=== PATIENT | female | born 1950 | race Caucasian/White ===

== ENCOUNTER 2018-10-23 11:42 | Observation (INO) | payer OTHER, MEDICARE ==
--- NOTE | 2018-10-23 12:10 | PDOC ---
History of Present Illness - General Chief Complaint: Urinary Problem Stated Complaint: PAIN ON URINATION Time Seen by Provider: 10/23/18 11:47 History Source: Patient Exam Limitations: No Limitations - History of Present Illness Initial Comments: 10/23/18 12:51 68y F hx of parkinsons, anxiety, hypothyroidism, recent dx of UTI (was on bactrim and then a pcn based medication) as an outpatient, but presents due to persistent weakness. Pt had dysuria recently but dnies any currently. she notes occasional suprapubic discomfort after taking her medcations, but states that has been going on for a year, with no changes recently. pt denies any cp, sob, palpitations, back pain, current abd pain, current dysuria, fever/chills, diarrhea, melena, bpr, diaphoresis, sob. the pt does endorse approx 1 week of increased coughing with production of whitishs putum w/o associated f/c, cp, [place], Past History - Past Medical History Allergies/Adverse Reactions: Allergies Allergy/AdvReac Type Severity Reaction Status Date / Time prednisone Allergy Verified 10/23/18 11:53 Home Medications: Ambulatory Orders Carbidopa/Levodopa 25/250 [Sinemet 25/250 -] 1 each PO QID 10/23/18 Clonazepam 0.25 mg PO PRN PRN 10/23/18 Levothyroxine Sodium [Synthroid] 88 mcg PO DAILY 10/23/18 Mirtazapine 22.5 mg PO HS 10/23/18 Omeprazole 40 mg PO ASDIR 10/23/18 Teriparatide [Forteo] 0 ml SQ DAILY 10/23/18 COPD: No Thyroid Disease: Yes Other medical history: PARKINSONS, OSTEOPOROSIS - Suicide/Smoking/Psychosocial Hx Smoking History: Never smoked Hx Alcohol Use: No Drug/Substance Use Hx: No Review of Systems - Review of Systems Able to Perform ROS?: Yes Comments:: 10/23/18 12:54 Constitutional - +general malaise no reported Fever, Chills, HEENT: no reported vision changes, sore throat Respiratory: + cough, no reported sob, hemoptysis Cardiac: no reported chest pain, palpitations, light headedness, leg swelling Abd/GI: no reported abd pain, nausea, vomiting, blood per rectum, melena, diarrhea : no reported dysuria, frequency, discharge Musculskelatal - no reported back pain, joint swelling skin - no reported bruising, erythema, rash neurological: no reported headache, numbness, focal weakness, tingling, ataxia, hematologic: no reported easy bruising, easy bleeding *Physical Exam - Vital Signs Last Vital Signs Temp Pulse Resp BP Pulse Ox 97.2 F L 84 17 105/63 100 10/23/18 11:43 10/23/18 11:43 10/23/18 11:43 10/23/18 11:43 10/23/18 11:43 - Physical Exam Comments: 10/23/18 12:54 GENERAL: The patient is awake, alert, and fully oriented, Nontoxic - in no acute distress. HEAD: Normocephalic, atraumatic. EYES: extraocular movements intact, sclera anicteric, conjunctiva clear. ENT: Normal voice, Moist mucous membranes. NECK: Normal range of motion, supple LUNGS: rales at R base, no acute respiratory distress HEART: Regular rate and rhythm, normal S1 and S2 without murmur, rub or gallop. ABDOMEN: Soft, nontender, normoactive bowel sounds. No guarding, no rebound. No CVA tenderness EXTREMITIES: Normal range of motion, no edema. No clubbing or cyanosis. No cords, erythema, or tenderness. NEUROLOGICAL: No facial assymetry, moving all 4 extremities spontnaeously and symmetrically PSYCH: Normal mood, normal affect. SKIN: Warm, Dry, normal turgor, Heart Score/ECG Review - ECG Impressions Comment:: 10/23/18 12:55 Twelve-lead EKG was performed and reviewed by me. There is normal sinus rhythm with a normal rate. Rate of 78 Nonspecific T wave inversion in lead 3 ED Treatment Course - LABORATORY CBC & Chemistry Diagram: 10/23/18 12:21 10/23/18 12:21 - RADIOLOGY Radiology Studies Ordered: Category Date Time Status CHEST X-RAY PORTABLE* [RAD] Stat Radiology 10/23/18 11:54 Ordered Medical Decision Making - Medical Decision Making 10/23/18 12:56 71-year-old history of Parkinson's, hypothyroid, anxiety presenting with generalized malaise and weakness associated with 1 week of cough, recent diagnosis of UTI and had been on 2 courses of antibiotics On exam the patient is no acute distress, exam noted for rales at the R base She is afebrile however her oxygen saturation is borderline at 94% on RA Differential for the symptom patient's symptoms includes possible UTI consider possible pneumonia We'll obtain a UA, chest x-ray, blood work, cultures, EKG, trop, will erassess 10/23/18 13:51 labs reviewed UA unremarkble but possibly secondary to recent abx use cxr noted for some fluid in the R fissure will start pt on ctx will admit for further manageent case dw REHABILITATION PHYSICIAN Edmund accepted for admission to med surg under dr. reyes's service Case discussed in detail with admitting physician including history, physical exam and ancillary studies. Admitting physician has assumed care for the patient, will follow all pending diagnostics and will complete the evaluation and treatment. *DC/Admit/Observation/Transfer Diagnosis at time of Disposition: Parkinson disease Pneumonia Qualifiers: Pneumonia type: due to unspecified organism Laterality: right Lung location: lower lobe of lung Qualified Code(s): J18.1 - Lobar pneumonia, unspecified organism Urinary tract infection Qualifiers: Urinary tract infection type: site unspecified Hematuria presence: without hematuria Qualified Code(s): N39.0 - Urinary tract infection, site not specified - Discharge Dispostion Condition at time of disposition: Stable Decision to Admit order: Yes - Referrals - Patient Instructions - Post Discharge Activity
[2018-10-23 12:56] LABS: ALBUMIN 3.6 g/dl (3.4-5.0); ALK PHOS 112 U/L (45-117); ANION GAP 9 MMOL/L (8-16); BILIRUBIN,TOTAL 0.6 mg/dl (0.2-1); BLOOD UREA NITROGEN 16 mg/dl (7-18); CALCIUM 8.2 mg/dl (8.5-10); CHLORIDE 100 mmol/L (98-107); CO2 26 mmol/L (21-32); CREATININE 0.6 mg/dl (0.55-1.3); GLUCOSE,RANDOM 80 mg/dl (74-106); SGOT/AST 21 U/L (15-37); SGPT/ALT 7 U/L (13-61); SODIUM 135 mmol/L (136-145); TOT PROT 6.2 g/dl (6.4-8.2)
[2018-10-23 13:37] LABS: BASO % 0.2 % (0-2.0); EOS % 1.4 % (0-4.5); HEMATOCRIT 38.3 % (32.4-45.2); HEMOGLOBIN 12.7 GM/dl (10.7-15.3); LYMPH % 21.6 % (8-40); MCH 28.3 pg (25.7-33.7); MCHC 33.2 g/dl (32.0-36.0); MEAN CELL VOLUME 85.4 fl (80-96); MEAN PLT VOLUME 7.7 fl (7.5-11.1); MONO % 14.3 % (3.8-10.2); NEUT % 62.5 % (42.8-82.8); PLATELET COUNT 287 K/MM3 (134-434); RBC 4.48 M/mm3 (3.60-5.2); RDW 13.6 % (11.6-15.6); WHITE BLOOD COUNT 3.5 K/mm3 (4.0-10.8)
[2018-10-23] MEDS ORDERED: CEFTRIAXONE 1 GM in DEXTROSE 5%-WATER - 50 ML IVPB ONE (13:49)
[2018-10-23] MEDS ORDERED: cefTRIAXone SODIUM 1 GM VIAL ONE (13:58)
[2018-10-23] MEDS ORDERED: CLONAZEPAM 0.25 MG PO PRN (13:58)
--- NOTE | 2018-10-23 13:58 | HP ---
CHIEF COMPLAINT: "I'm here for a UTI. And I've been coughing." PCP: Dr. Salvador Menezes, [facility] [phone] Neuro: Dr. Jean Armando, [place] Neuro: Dr. Pardeep Booth, [facility] [place] HISTORY OF PRESENT ILLNESS: 68 year-old female with a PMH significant for a progressive neuromuscular disorder diagnosed two years ago and GERD. She has been seen by several neuroloigsts without consensus on a diagnosis. She has been treated empirically with carbidopa/levodopa. Patient was brought to the ED today by her for worsening cough and difficulty swallowing. The cough is persistent and frequently productive of clear sputum. The cough is worse when she lays down and she experiences a choking sensation when she lays flat. Over the past two months patient had two workups for UTIs and has been on two courses of antibiotics. Last course of macrobid finished about a week ago. Patient was seen by a urologist and had an ultrasound which showed a full bladder even though patient had no urge to void. She was catheterized on that occasion, but no further workup was done for urinary retention. Over the past several days patient reports several episodes of sweats and dysuria. In addition, over the past three weeks, reports several episodes of delusions when the patient thinks her mother and father are talking in their apartment. She also has said her children were in the apartment at a time when they were not. ER course was notable for: (1) WBC 3.5k (2) SpO2 91% on room air (3) CT chest: (1) bronchitis; (2) thickening of the esophagus, distended with food-like material up to the upper esophagus just inferior to the thoracic inlet. Recent Travel: [employer] PAST MEDICAL HISTORY: Neuromuscular disorder Pelvic fracture Wrist fracture Severe osteoporosis GERD PAST SURGICAL HISTORY: Knee arthroplasty Social History: Smoking: no Alcohol: no Drugs: no Family History: father 85, normal pressure hydrocephalus; mother 93 CVA; brother alive recurrent DVTs/PE; two children a&w Allergies prednisone Allergy (Verified 10/23/18 11:53) - more of intolerance, exacerbates GERD Home Medications Medication Instructions Recorded Carbidopa/Levodopa 25/250 [Sinemet 1 each PO QID 10/23/18 25/250 -] Clonazepam 0.25 mg PO PRN PRN 10/23/18 Levothyroxine Sodium [Synthroid] 88 mcg PO DAILY 10/23/18 Mirtazapine 22.5 mg PO HS 10/23/18 Omeprazole 40 mg PO ASDIR 10/23/18 Teriparatide [Forteo] 0 ml SQ DAILY 10/23/18 REVIEW OF SYSTEMS CONSTITUTIONAL: +sweats Absent: fever, chills, diaphoresis, generalized weakness, malaise, loss of appetite, weight change HEENT: Absent: rhinorrhea, nasal congestion, throat pain, throat swelling, difficulty swallowing, mouth swelling, ear pain, eye pain, visual changes CARDIOVASCULAR: Absent: chest pain, syncope, palpitations, irregular heart rate, lightheadedness , peripheral edema RESPIRATORY: +cough Absent: cough, shortness of breath, dyspnea with exertion, orthopnea, wheezing, stridor, hemoptysis GASTROINTESTINAL: +difficulty swallowing, cough, copious clear sputum, choking sensation when lying down Absent: abdominal pain, abdominal distension, nausea, vomiting, diarrhea, constipation, melena, hematochezia GENITOURINARY: +dysuria, frequency Absent: dysuria, frequency, urgency, hesitancy, hematuria, flank pain, genital pain MUSCULOSKELETAL: Absent: myalgia, arthralgia, joint swelling, back pain, neck pain SKIN: Absent: rash, itching, pallor HEMATOLOGIC/IMMUNOLOGIC: Absent: easy bleeding, easy bruising, lymphadenopathy, frequent infections ENDOCRINE: Absent: unexplained weight gain, unexplained weight loss, heat intolerance, cold intolerance NEUROLOGIC: +dysarthria, difficulty swallowing, difficulty walking, lower extremity weakness , bladder incontinence, mental status changes Absent: headache, focal weakness or paresthesias, dizziness, unsteady gait, seizure, bowel incontinence PSYCHIATRIC: +anxiety Absent: depression, suicidal or homicidal ideation, hallucinations. PHYSICAL EXAMINATION Vital Signs - 24 hr 10/23/18 11:43 Temperature 97.2 F L Pulse Rate 84 Respiratory 17 Rate Blood Pressure 105/63 O2 Sat by Pulse 100 Oximetry (%) GENERAL: Awake, alert, and fully oriented. LUNGS: Scattered rhonchi, bibasilar crackles; weak cough; bedside peak flow 130 HEART: Regular rate and rhythm, S1 and S2 ABDOMEN: Soft, nontender, not distended, normoactive bowel sounds, no guarding, no rebound tenderness UPPER EXTREMITIES: 2+ pulses, warm, well-perfused. No cyanosis. No clubbing. No peripheral edema. LOWER EXTREMITIES: 2+ pulses, warm, well-perfused. No calf tenderness. Trace bilateral pedal edema. NEUROLOGICAL: Dysarthria, weak cough, SKIN: Warm, dry, normal turgor Laboratory Results - last 24 hr 10/23/18 10/23/18 10/23/18 11:50 12:15 12:21 WBC 3.5 L RBC 4.48 Hgb 12.7 Hct 38.3 MCV 85.4 MCH 28.3 MCHC 33.2 RDW 13.6 Plt Count 287 MPV 7.7 Absolute Neuts (auto) 2.2 Neutrophils % 62.5 Lymphocytes % 21.6 Monocytes % 14.3 H Eosinophils % 1.4 Basophils % 0.2 Sodium Potassium Chloride Carbon Dioxide Anion Gap BUN Creatinine Creat Clearance w eGFR Random Glucose Calcium Total Bilirubin AST ALT Alkaline Phosphatase Creatine Kinase Troponin I < 0.03 Total Protein Albumin Urine Color Yellow Urine Appearance Clear Urine pH 6.0 Urine Protein Negative Urine Glucose (UA) Negative Urine Ketones Negative Urine Blood Negative Urine Nitrite Negative Urine Bilirubin Negative Urine Urobilinogen 0.2 Ur Leukocyte Esterase Trace 10/23/18 12:21 WBC RBC Hgb Hct MCV MCH MCHC RDW Plt Count MPV Absolute Neuts (auto) Neutrophils % Lymphocytes % Monocytes % Eosinophils % Basophils % Sodium 135 L Potassium 4.0 Chloride 100 Carbon Dioxide 26 Anion Gap 9 BUN 16 Creatinine 0.6 Creat Clearance w eGFR 98.83 Random Glucose 80 Calcium 8.2 L Total Bilirubin 0.6 AST 21 ALT 7 L Alkaline Phosphatase 112 Creatine Kinase 63 Troponin I Cancelled Total Protein 6.2 L Albumin 3.6 Urine Color Urine Appearance Urine pH Urine Protein Urine Glucose (UA) Urine Ketones Urine Blood Urine Nitrite Urine Bilirubin Urine Urobilinogen Ur Leukocyte Esterase ASSESSMENT/PLAN 68 year-old female with a PMH significant for a progressive neuromuscular disorder x 2 years and GERD. Recently treated for recurrent UTIs. Placed on observation for suspected bronchitis and UTI. Found on admission to have distended esophagus from food-like material. Neuromuscular disorder --by history provided by patient and symptoms have waxed and waned over past 2 years, but progressively worse in past two months --has been treated with carbidopa/levodopa since 12/2017 with improvement in symptoms for a number of months --seen and evaluated by neurology Dr. Rosenberg --since NPO tonight, start Neupro 4mg TD patch q24h, and mirtazapine ODT 22.5mg qhs Distended esophagus --CT chest: thickening of the esophagus, distended with food-like material up to the upper esophagus just inferior to the thoracic inlet --seen and evaluated by GI Dr. Redd; OG tube dropped, <10cc's clear sputum output --strict NPO --HOB 60-->90 degrees; suction at bedside --upright abdominal film in am --concern for aspiration, will start empiric ceftriaxone and clindamycin Bronchitis --WBC 3.5k, no fever --mildly hypoxic on admission, improves with position change and deep breathing --peak flow 130; daily monitoring --incentive spirometer --duonebs q4h Dysuria Frequency --UA clear but recent abx use, last round finished one week ago --symptomatic --empiric ceftriaxone GERD --Protonix IVP BID FEN Fluids: D51/2NS@100mL/hr Electrolytes: replete as indicated Nutrition: strict NPO DVT prophylaxis: subq heparin Physical therapy - pre post evaluation during PT Dispo: continues to require inpatient care. Full code. Visit type - Emergency Visit Emergency Visit: Yes ED Registration Date: 10/23/18 Care time: The patient presented to the Emergency Department on the above date and was hospitalized for further evaluation of their emergent condition. - New Patient This patient is new to me today: Yes Date on this admission: 10/23/18 - Critical Care Critical Care patient: Yes Total Critical Care Time (in minutes): 180 Critical Care Statement: The care of this patient involved high complexity decision making to prevent further life threatening deterioration of the patient 's condition and/or to evaluate & treat vital organ system(s) failure or risk of failure.
[2018-10-23] MEDS ORDERED: CARBIDOPA/LEVODOPA 25/250 TABLET (FP) PO SCH ×2 (14:00→18:00)
[2018-10-23] MEDS ORDERED: PATIENT'S OWN MEDICATION (NON-FORMULARY) (Omeprazole [Omeprazole] 40 MG) PO SCH (14:00)
[2018-10-23] MEDS ORDERED: CARBIDOPA/LEVODOPA 25/250 TABLET (FP) PO ONE (14:03)
[2018-10-23 14:13] LABS: EPI CELLS FEW /HPF; URINE RBC 0-3 /hpf (0-4); URINE WBC 0-3 (NEGATIVE)
[2018-10-23] MEDS ORDERED: [UNRECOGNIZED DRUG - OTHER] PO PRN (14:38)
[2018-10-23] MEDS ORDERED: clonazePAM 0.5 MG TABLET PO PRN (14:41)
--- NOTE | 2018-10-23 15:17 | EKG ---
Test Reason : Blood Pressure : / mmHG Vent. Rate : 078 BPM Atrial Rate : 078 BPM P-R Int : 132 ms QRS Dur : 076 ms QT Int : 396 ms P-R-T Axes : 043 -11 -12 degrees QTc Int : 451 ms NORMAL SINUS RHYTHM RIGHT ATRIAL ENLARGEMENT MINIMAL VOLTAGE CRITERIA FOR LVH, MAY BE NORMAL VARIANT NONSPECIFIC ST ABNORMALITY ABNORMAL ECG NO PREVIOUS ECGS AVAILABLE Confirmed by JOELLE MCKEON, DARCIE ([id number]) on 10/23/2018 3:17:06 PM Referred By: DEAN SELBY Confirmed By:DARCIE LAI MD
[2018-10-23 16:08] VITALS: BMI 28.8
--- NOTE | 2018-10-23 16:35 | ECHO ---
Name: KAVON COYNE ANN Exam:Adult Echocardiogram Study Date: 10/23/2018 03:40 PM Age: 68 yrs Reason For Study: HYPOXIA LOWER EXTREMITY EDEMA Height: 60 in Weight: 134 lb BSA: 1.6 m2 MMode/2D Measurements & Calculations IVSd: 0.81 cm Ao root diam: 3.3 cm LVIDd: 3.3 cm LA dimension: 3.1 cm LVIDs: 2.1 cm LVPWd: 0.76 cm LVPWs: 2.7 cm EDV(Teich): 45.7 ml ESV(Teich): 15.0 ml LVOT diam: 2.0 cm Doppler Measurements & Calculations MV E max rohini: 58.5 cm/sec MV A max rohini: 56.4 cm/sec MV dec slope: 281.1 cm/sec2 MV E/A: 1.0 Ao V2 max: 93.6 cm/sec LV V1 max P.0 mmHg Ao max P.5 mmHg LV V1 mean P.9 mmHg Ao V2 mean: 71.7 cm/sec LV V1 max: 112.0 cm/sec Ao mean P.3 mmHg LV V1 mean: 79.9 cm/sec Ao V2 VTI: 21.3 cm LV V1 VTI: 24.8 cm NAVEEN(I,D): 3.7 cm2 NAVEEN(V,D): 3.8 cm2 SV(LVOT): 77.8 ml TR max rohini: 193.7 cm/sec TR max P.0 mmHg Procedure A complete two-dimensional transthoracic echocardiogram was performed (2D, M-mode, Doppler and color flow Doppler). Left Ventricle The left ventricular size, thickness and function are normal. The left ventricular ejection fraction is normal. Ejection Fraction = 60-65%. The left ventricular wall motion is normal. Right Ventricle The right ventricle is normal in size and function. Atria Normal left and right atrial size and function. Mitral Valve There is no mitral regurgitation noted. Tricuspid Valve There is trace tricuspid regurgitation. There was insufficient TR detected to calculate RV systolic p ressure. Aortic Valve The aortic valve is trileaflet. No hemodynamically significant valvular aortic stenosis. Mild aortic regurgitation. Pulmonic Valve There is no pulmonic valvular regurgitation. Great Vessels The aortic root is normal size. Pericardium/Pleura There is no pericardial effusion. Interpretation Summary The left ventricular size, thickness and function are normal The right ventricle is normal in size and function. There is trace tricuspid regurgitation. Mild aortic regurgitation. MD Brian Moore 10/23/2018 04:35 PM
[2018-10-23] MEDS ORDERED: DEXTROSE 5%-0.45% SALINE 1,000 ML IV SCH (17:30)
[2018-10-23] MEDS ORDERED: LORazepam 2 MG/ML SDV VIAL IVPUSH PRN ×3 (17:55→23:12)
--- NOTE | 2018-10-23 19:27 | PN ---
Progress Note (short form) - Note Progress Note: Patient seen and chart/labs reviewed with consult dictated. Patient with reported esophageal motility disorder (had barium study several weeks ago) but has generally been able to eat fairly well. Has also had progressive neurologic issues and was admitted with concerns regarding possible aspiration/risk. CT scan (no contrast) shows thickened esophagus with possible retained material along the kirkpatrick; ?inflammation/ esophagitis. Orogastric tube passed at bedside to 40cm with no resistance and small amount of clear fluid aspirated (patient with less raspy throat after tube removed) Suspect patient has combination of esophageal dysmotility and GERD with esophagitis; no evidence of esophageal obstruction. Rec: NPO except for ice chips Obtain upright CXR in am Will arrange for EGD tomorrow early afternoon to evaluate further IV PPI bid
[2018-10-23] MEDS: CLINDAMYCIN 600MG PREMIX IVPB 600 MG/50 ML BAG IVPB SCH (20:00)
[2018-10-23] MEDS ORDERED: ALBUTEROL SO4 2.5/IPRATROPIUM 0.5 INH SOL 3 ML VIAL.NEB. NEB SCH ×2 (20:00)
--- NOTE | 2018-10-23 20:02 | CONS ---
DATE OF CONSULTATION: 10/23/2018 DATE OF DICTATION: 10/23/2018 HISTORY OF PRESENT ILLNESS: I am asked to evaluate this 68-year-old female with esophageal dysmotility and possible gastroesophageal reflux. The patient is a 68-year-old female with a progressive neurological disorder of unknown etiology. She is being treated for possible Parkinson's disease and at times has had difficulty with swallowing and occasional cough. She also may have a history of gastroesophageal reflux. She has difficulty laying flat due to her cough and occasionally has a choking sensation when she lays flat. She has had workups for the swallowing, including a recent barium esophagram which was reported to show esophageal dysmotility. She has also had ongoing issues with urinary retention and urinary infections. The patient was admitted to the hospital with cough and some swallowing issues. She apparently has been able to swallow certain foods fairly well including softer foods without difficulty. She has not had a history of heartburn or of a food impaction. The patient had a CAT scan of the chest on contrast which has thickening of the esophagus with distention and some food-like material possibly coating the esophagus up to the region of the thoracic inlet. The patient was seen at the bedside with occasional coughing or difficulty clearing her throat. PHYSICAL EXAMINATION: General: She is a well developed alert female with mild dysarthria. She appears to be comfortable with regards to breathing, sitting at a 30 to 40 degree angle. Lungs: Grossly clear. Heart: Regular rate and rhythm. Abdomen: Soft, flat, nontender. HEENT: Her oropharynx is slightly dry without any evidence of thrush. The patient had an orogastric tube passed under by me with only a small amount of clear fluid removed; however, her raspiness and feeling of needing to cough was improved. Patient most likely has a combination of esophageal dysmotility and gastroesophageal reflux, with possibility of a mild distal esophageal stricture due to esophagitis could not be excluded. There is no evidence for a complete esophageal obstruction at the present time. The patient did benefit from aspiration through an NG tube when it was placed in the esophagus. Would keep patient only on ice chips and/or swabs to keep her mouth moist, but defer feeding her for the time being until after an endoscopy which will be performed tomorrow. Might also consider getting an upright x-ray in the morning to confirm no evidence of any fluid in the esophagus. Will follow. GABE BANKS M.D. [id number]
[2018-10-23] MEDS ORDERED: MIRTAZAPINE 15 MG TABLET (FP) PO SCH (22:00)
[2018-10-23] MEDS: PANTOPRAZOLE SODIUM 40 MG VIAL IVPUSH SCH (22:00)
[2018-10-23] MEDS ORDERED: HEPARIN NA (PORCINE) 5,000 UNITS/ML 1ML VIAL SQ SCH (22:00)
--- NOTE | 2018-10-23 22:30 | PN ---
Progress Note (short form) - Note Progress Note: Pt. seen, examined, d/w family and Ms. Lorin Shaffer STAFF DEVELOPER-full note to follow in am. Suggest: Mirtazepine 15mg orally disintegrating tablet hs and Neupro patch 4mg q24 hrs for now. Thank you, Cristina Rosenberg MD
[2018-10-23] MEDS: ALBUTEROL SO4 2.5/IPRATROPIUM 0.5 INH SOL 3 ML VIAL.NEB. NEB SCH (23:29)
[2018-10-23] MEDS ORDERED: MIRTAZAPINE 15 MG PO SCH (23:45)
[2018-10-23] MEDS ORDERED: NEUPRO 4 MG TP SCH (23:45)
[2018-10-24] MEDS: CLINDAMYCIN 600MG PREMIX IVPB 600 MG/50 ML BAG IVPB SCH ×2 (02:00→09:17)
[2018-10-24] MEDS ORDERED: LEVOTHYROXINE NA 88 MCG TABLET (FP) PO SCH (06:00)
[2018-10-24 06:59] LABS: BASO % 0.3 % (0-2.0); EOS % 0.6 % (0-4.5); HEMATOCRIT 36.8 % (32.4-45.2); HEMOGLOBIN 12.1 GM/dl (10.7-15.3); LYMPH % 17.4 % (8-40); MCH 27.9 pg (25.7-33.7); MCHC 32.8 g/dl (32.0-36.0); MEAN CELL VOLUME 85.1 fl (80-96); MEAN PLT VOLUME 7.1 fl (7.5-11.1); MONO % 11.4 % (3.8-10.2); NEUT % 70.3 % (42.8-82.8); PLATELET COUNT 279 K/MM3 (134-434); RBC 4.33 M/mm3 (3.60-5.2); RDW 13.5 % (11.6-15.6); WHITE BLOOD COUNT 3.7 K/mm3 (4.0-10.8)
[2018-10-24] MEDS ORDERED: PT OWN MED DRAWER 7, Y5N ONE ×3 (07:03→17:41)
[2018-10-24 07:11] LABS: ALBUMIN 3.4 g/dl (3.4-5.0); ALK PHOS 109 U/L (45-117); ANION GAP 10 MMOL/L (8-16); BILIRUBIN,TOTAL 0.5 mg/dl (0.2-1); BLOOD UREA NITROGEN 11 mg/dl (7-18); CALCIUM 8.2 mg/dl (8.5-10); CHLORIDE 103 mmol/L (98-107); CO2 23 mmol/L (21-32); CREATININE 0.5 mg/dl (0.55-1.3); GLUCOSE,RANDOM 115 mg/dl (74-106); MAGNESIUM 1.9 mg/dL (1.8-2.4); PHOSPHOROUS 3.5 mg/dl (2.5-4.9); POTASSIUM 4.1 mmol/L (3.5-5.1); SGOT/AST 20 U/L (15-37); SGPT/ALT 26 U/L (13-61); SODIUM 136 mmol/L (136-145); TOT PROT 5.9 g/dl (6.4-8.2)
[2018-10-24] MEDS: ALBUTEROL SO4 2.5/IPRATROPIUM 0.5 INH SOL 3 ML VIAL.NEB. NEB SCH ×3 (08:06→15:47)
[2018-10-24] MEDS: PANTOPRAZOLE SODIUM 40 MG VIAL IVPUSH SCH (09:17)
[2018-10-24] MEDS ORDERED: LEVOTHYROXINE SODIUM 100 MCG VIAL IVPUSH SCH (10:00)
[2018-10-24] MEDS ORDERED: CEFTRIAXONE 1 G/50 ML PREMIX 50 ML IVPB SCH (10:00)
--- NOTE | 2018-10-24 10:53 | CONSULT ---
Admitting History and Physical - Primary Care Physician PCP: Daria Shaffer - Admission History of Present Illness: 68 year-old female with a PMH significant for a progressive neuromuscular disorder diagnosed two years ago and GERD,admitted to [facility] for worsening cough and difficulty swallowing. Per pt's cement side laster,she was away on vacation but looked much worse when she returned. She has been treated for a UTI but over the past several days patient reports several episodes of sweats and dysuria. Per EMR, pt's reported recent "delusions"/confusion. ER course was notable for: (1) WBC 3.5k (2) SpO2 91% on room air (3) CT chest: (1) bronchitis; (2) thickening of the esophagus, distended with food-like material up to the upper esophagus just inferior to the thoracic inlet. Pt seen bedsaide, and cement side laster served as informant. Her was not present. Pt known to me from OPD Speech/Swallow evaluation and MBS in January 2018. At that time,pt presented with Mild (+) hypokinetic dysarthria with reduced volume and rapid, imprecise articulations with occasional phomemic errors. Good stimulability for increased volume and speaking in phrase groups to increase intelligibility. Mild cognitive deficits suspected. Mild oropharyngeal dysphagia (See MBS). Additionally, pt reported reflux and sleeping difficulty. Selected Entries 10/23/18 10/23/18 10/23/18 11:43 13:51 19:22 Skin Risk Level Temperature 97.2 F L 98.8 F 98.5 F 10/23/18 10/24/18 10/24/18 22:45 06:37 06:47 Skin Risk Level High Risk Temperature 98.0 F 98.0 F 10/24/18 10/24/18 08:53 09:56 Skin Risk Level High Risk Temperature 99.4 F Laboratory Tests 10/23/18 10/24/18 12:21 06:47 WBC 3.5 L 3.7 L Pt seen bedside, Dyspneic, abdominal muscle use, o2 saturation 94% on NC. Pt was arousable briefly, speech poorly intelligible, recognized me but seemed confused, impaired insight, repeatedly fell asleep. No drooling or vocal wetness. Field Account Director denied recent dysphagia, coughing while eating, drinking, actually at part of a Panini and fries yesterday per staff.She did report speech has been difficult to understand, but overall function deteriorated since return from her vacation. Case reviewed on telephone with PNP. 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 - Smoking History Smoking history: Never smoked - Alcohol/Substance Use Hx Alcohol Use: No History - Admission Reason For Visit: PNEUMONIA - Diagnostics X-ray: Report Reviewed CT Scan: Report Reviewed Modified Barium Swallow: Report Reviewed (January 2018- Mildly reduced BOT retraction/laryngeal excursion resulting in mild stasis in pharynx.Risk of aspiration, but none demonstrated.) - General Mental Status: Able to Follow Commands, Lethargic Ability to Follow Directions: Fair Head/Neck Control: Needs Assist - Hearing Hearing: Normal Hearing Aide: No With Patient: No Speech Evaluation - Communication Primary Language: KINYARWANDA Communication: Yes: Dysarthria Oral Expression Ability: Yes: Moderate Impairment, Severe Impairment - Speech Production Able to Make Needs Known: Yes: Moderately Impaired, Severely Impaired Intelligibility: Yes: Moderately Impaired, Severely Impaired - Speech Characteristics Voice Loudness: Mildly Soft/Quiet, Moderately Soft/Quiet Voice Pitch: Yes: Normal Voice Phonatory-based Quality: Yes: Normal Speech Pattern: Impaired Speech Clarity: < 50% Nasal Resonance: Hypernasal Articulation: Yes: Imprecise Rate of Speech: Too Fast Voice, Other Observations: Yes: Progressively Weak Voice, Inadequate Breath Support - Language/Auditory Comprehension Follows: Yes: 1 Stage Simple Commands Observation: Able to respond to yes/no queries: Yes, Yes/No Confusion: No, Comprehends Conversational Speech: Yes - Swallow Evaluation/Bedside Assessment Current Nutritional Intake: NPO Oral Secretions: Yes: WFL Dentition: Yes: Adequate Facial Symmetry at Rest: Symmetrical Facial Symmetry on Retraction: Symmetrical Against Resistance Opening: Weak Against Resistance Closing: Weak Pucker Lips: Weak Smile: Weak Lingual Movement: Symmetric Lingual Speed of Movement: Reduced Lingual Movement Strgth Against Opposition: Reduced Lingual Movement Characteristics: Normal Recommendations - Speech Evaluation, Impression/Plan Impression: NPO. PO trials not presented. Dyspneic. Per PNP, placed on NRB, o2 increased from 94-100%. Continued accessory muscles/abdominal breathing while sleeping, improved once aroused. - Disposition Discharge to: To be Determined - Dysphagia Impressions/Plan Dysphagia Impressions: Ongoing Evaluation *Silent aspiration: cannot be R/O at bedside Recommendations: Pulmonary Consult (pending), GI Consult (f/u), MBS w Esophagus (at [facility] once medically stable.), Other (Pulmonary pending) - Recommendations Diet Consistency: NPO Liquids: NPO
[2018-10-24] MEDS ORDERED: ONDANSETRON 4 MG/2 ML VIAL IVPUSH ONE (11:00)
--- NOTE | 2018-10-24 11:17 | CON.PULM ---
Consult Consult Specialty:: PULMONARY Referred by:: ANTONINA Reason for Consultation:: HYPOXIA - History of Present Illness Chief Complaint: SOB History of Present Illness: 68y F hx of parkinsons, anxiety, hypothyroidism, recent dx of UTI, has had progressive weakness, sob and sleep deprivation, brought to ER due to inability to swallow due to weakness. Pt had dysuria recently but dnies any currently. she notes occasional suprapubic discomfort after taking her medcations, but states that has been going on for a year, with no changes recently. Patient's underlying neurological disorder is presumed to be due to Parkinsons disease, it appears to have progressed over past one month. 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 Reproductive: Yes: Postmenopausal ...: No Endocrine: Yes: Hypothyroidism - Alcohol/Substance Use Hx Alcohol Use: No History of Substance Use: reports: Heroin - Smoking History Smoking history: Never smoked - Social History Usual Living Arrangement: With Spouse Place of : [facility] History of Recent Travel: Yes ([employer]) Home Medications - Allergies Allergies/Adverse Reactions: Allergies Allergy/AdvReac Type Severity Reaction Status Date / Time prednisone Allergy Verified 10/23/18 11:53 - Home Medications Home Medications: Ambulatory Orders Carbidopa/Levodopa 25/250 [Sinemet 25/250 -] 1 each PO QID 10/23/18 Clonazepam 0.25 mg PO PRN PRN 10/23/18 Levothyroxine Sodium [Synthroid] 88 mcg PO DAILY 10/23/18 Mirtazapine 22.5 mg PO HS 10/23/18 Mirtazepine Heather Tabs [Remeron Soltab -] 15 mg PO DAILY #30 tab.rapdis 10/23/18 Omeprazole 40 mg PO ASDIR 10/23/18 Rotigotine [Neupro] 4 mg TD DAILY #7 patch.td24 10/23/18 Teriparatide [Forteo] 0 ml SQ DAILY 10/23/18 Family Disease History - Family Disease History Family History: Unremarkable Review of Systems Unable to obtain ROS, reason: DIFFICULT TO OBTAIN Physical Exam Vital Sings: Vital Signs Temperature 99.4 F 10/24/18 09:56 Pulse Rate 91 H 10/24/18 09:22 Respiratory Rate 21 H 10/24/18 09:22 Blood Pressure 129/82 10/24/18 09:22 O2 Sat by Pulse Oximetry (%) 94 L 10/24/18 09:22 Constitutional: Yes: Calm HENT: Yes: Atraumatic, Other (DYSARTHRIC SPEECH) Neck: Yes: Trachea Midline Cardiovascular: Yes: Regular Rate and Rhythm Respiratory: Yes: CTA Bilaterally Gastrointestinal: Yes: Soft Renal/: Yes: WNL Musculoskeletal: Yes: Muscle Weakness Edema: LLE: 1+, RLE: 1+ Integumentary: Yes: Other (HEEL WRAPS) Neurological: Yes: Lethargy, Pre-Existing Deficit, Weakness, Other (FUNCTIONAL QUAD) Labs: CBC, BMP 10/24/18 06:47 10/24/18 06:47 REST REVIEWED Imaging - Results Chest X-ray: Report Reviewed, Image Reviewed Cat Scan: Report Reviewed, Image Reviewed Problem List - Problems (1) Esophageal obstruction due to food impaction Code(s): K22.2 - ESOPHAGEAL OBSTRUCTION; T18.128A - FOOD IN ESOPHAGUS CAUSING OTHER INJURY, INITIAL ENCOUNTER (2) Parkinson disease Code(s): G20 - PARKINSON'S DISEASE (3) Achalasia Code(s): K22.0 - ACHALASIA OF CARDIA Assessment/Plan PATIENT'S UNDERLYING NEUROLOGICAL CONDITION HAS BEEN PROGRESSING. ESOPHAGEAL FOOD IMPACTION LIKELY DUE TO ACHALASIA? HAVE SPOKEN WITH GI AND ANESTHESIA THE CONSENSUS IS TO INTUBATE PRIOR TO EGD IN ORDER TO PROTECT AIRWAY AND TO ENSURE ADEQUATE OXYGENATION AND VENTILATION DURING AND IMMEDIATELY AFTER THE PROCEDURE. WILL CONTINUE TO FOLLOW Roay MAYEN MD.
--- NOTE | 2018-10-24 11:35 | PN ---
Physical Exam: SUBJECTIVE: Patient seen and examined OBJECTIVE: Vital Signs Period Temp Pulse Resp BP Sys/Sexton Pulse Ox Last 24 Hr 97.2 F-99.4 F 84-91 17-21 105-157/63-94 91-100 Laboratory Results - last 24 hr 10/23/18 10/23/18 10/23/18 05:00 05:00 11:50 WBC RBC Hgb Hct MCV MCH MCHC RDW Plt Count MPV Absolute Neuts (auto) Neutrophils % Lymphocytes % Monocytes % Eosinophils % Basophils % Sodium Potassium Chloride Carbon Dioxide Anion Gap BUN Creatinine Creat Clearance w eGFR Random Glucose Calcium Phosphorus Magnesium Total Bilirubin AST ALT Alkaline Phosphatase Creatine Kinase Troponin I Total Protein Albumin Urine Color Yellow Urine Appearance Clear Urine pH 6.0 Urine Protein Negative Urine Glucose (UA) Negative Urine Ketones Negative Urine Blood Negative Urine Nitrite Negative Urine Bilirubin Negative Urine Urobilinogen 0.2 Ur Leukocyte Esterase Trace Urine WBC (Auto) 0-3 Urine RBC (Auto) 0-3 U Epithel Cells (Auto) Few Ur Random Sodium 78 Urine Creatinine 92.4 10/23/18 10/23/18 10/23/18 12:15 12:15 12:21 WBC 3.5 L RBC 4.48 Hgb 12.7 Hct 38.3 MCV 85.4 MCH 28.3 MCHC 33.2 RDW 13.6 Plt Count 287 MPV 7.7 Absolute Neuts (auto) 2.2 Neutrophils % 62.5 Lymphocytes % 21.6 Monocytes % 14.3 H Eosinophils % 1.4 Basophils % 0.2 Sodium Potassium Chloride Carbon Dioxide Anion Gap BUN Creatinine Creat Clearance w eGFR Random Glucose Calcium Phosphorus Magnesium 2.2 Total Bilirubin AST ALT Alkaline Phosphatase Creatine Kinase Troponin I < 0.03 Total Protein Albumin Urine Color Urine Appearance Urine pH Urine Protein Urine Glucose (UA) Urine Ketones Urine Blood Urine Nitrite Urine Bilirubin Urine Urobilinogen Ur Leukocyte Esterase Urine WBC (Auto) Urine RBC (Auto) U Epithel Cells (Auto) Ur Random Sodium Urine Creatinine 10/23/18 10/24/18 10/24/18 12:21 06:47 06:47 WBC 3.7 L RBC 4.33 Hgb 12.1 Hct 36.8 MCV 85.1 MCH 27.9 MCHC 32.8 RDW 13.5 Plt Count 279 MPV 7.1 L Absolute Neuts (auto) 2.7 Neutrophils % 70.3 Lymphocytes % 17.4 Monocytes % 11.4 H Eosinophils % 0.6 Basophils % 0.3 Sodium 135 L 136 Potassium 4.0 4.1 Chloride 100 103 Carbon Dioxide 26 23 Anion Gap 9 10 BUN 16 11 Creatinine 0.6 0.5 L Creat Clearance w eGFR 98.83 121.98 Random Glucose 80 115 H Calcium 8.2 L 8.2 L Phosphorus 3.5 Magnesium 1.9 Total Bilirubin 0.6 0.5 AST 21 20 ALT 7 L 26 Alkaline Phosphatase 112 109 Creatine Kinase 63 Troponin I Cancelled Total Protein 6.2 L 5.9 L Albumin 3.6 3.4 Urine Color Urine Appearance Urine pH Urine Protein Urine Glucose (UA) Urine Ketones Urine Blood Urine Nitrite Urine Bilirubin Urine Urobilinogen Ur Leukocyte Esterase Urine WBC (Auto) Urine RBC (Auto) U Epithel Cells (Auto) Ur Random Sodium Urine Creatinine Active Medications Generic Name Dose Route Start Last Admin Trade Name Freq PRN Reason Stop Dose Admin Albuterol/Ipratropium 1 amp 10/23/18 23:15 10/24/18 11:27 Duoneb - NEB 1 amp RQID RONNIE Administration Heparin Sodium (Porcine) 5,000 unit 10/23/18 22:00 10/23/18 22:00 Heparin - SQ 5,000 unit BID RONNIE Administration Dextrose/Sodium Chloride 1,000 mls @ 100 mls/hr 10/23/18 17:30 10/23/18 18:03 D5-1/2ns - IV 100 mls/hr ASDIR RONNIE Administration Ceftriaxone Sodium 50 mls @ 100 mls/hr 10/24/18 10:00 10/24/18 09:17 Ceftriaxone 1 Gm-D5w Bag IVPB 100 mls/hr DAILY RONNIE Administration Protocol Clindamycin Phosphate 600 mg in 50 mls @ 100 mls/hr 10/23/18 18:45 10/24/18 09:17 Cleocin 600 Mg Premix Ivpb - IVPB 100 mls/hr Q8H-IV RONNIE Administration Protocol Levothyroxine Sodium 44 mcg 10/24/18 10:00 10/24/18 09:17 Synthroid Injection - IVPUSH 44 mcg DAILY RONNIE Administration Lorazepam 0.25 mg 10/23/18 23:12 10/23/18 23:31 Ativan Injection - IVPUSH 0.25 mg TID PRN Administration ANXIETY Mirtazapine 15mg Odt 0 each 10/23/18 23:45 10/23/18 23:30 Tab - Pom PO 1 each HS RONNIE Administration Neupro 4mg Patch- 1 each 10/24/18 22:00 Patient's Own TP Medication DAILY@2200 RONNIE Pantoprazole Sodium 40 mg 10/23/18 22:00 10/24/18 09:17 Protonix Iv IVPUSH 40 mg BID RONNIE Administration ASSESSMENT/PLAN 68 year-old female with a PMH significant for a progressive neuromuscular disorder, hypothyroidism, and GERD. Admitted for dysphagia secondary to food impaction, hypoxia secondary to neuromuscular disorder. Neuromuscular disorder --by history provided by patient and symptoms have waxed and waned over past 2 years, but progressively worse in past two months --has been treated with carbidopa/levodopa since 12/2017 with improvement in symptoms for a number of months --seen and evaluated by neurology Dr. Rosenberg --since NPO tonight, start Neupro 4mg TD patch q24h, and mirtazapine ODT 22.5mg qhs Distended esophagus likely secondary to food impaction --CT chest: thickening of the esophagus, distended with food-like material up to the upper esophagus just inferior to the thoracic inlet --seen and evaluated by GI Dr. Redd; OG tube dropped, <10cc's clear sputum output --strict NPO --HOB 60-->90 degrees; suction at bedside --for EGD this afternoon in OR, will need to be intubated Bronchitis --WBC 3.5k, no fever --satting 90% on room air, shallow breaths --peak flow 130; daily monitoring --incentive spirometer --duonebs q4h Dysuria Frequency --UA clear but recent abx use, last round finished one week ago --symptomatic --empiric ceftriaxone GERD --Protonix IVP BID FEN Fluids: D51/2NS@100mL/hr Electrolytes: replete as indicated Nutrition: strict NPO DVT prophylaxis: subq heparin Physical therapy - pre post evaluation during PT Dispo: continues to require inpatient care. Full code.
--- NOTE | 2018-10-24 14:49 | DS ---
Physical Exam: SUBJECTIVE: Patient seen and examined at bedside. Complaining of dysuria. OBJECTIVE: Vital Signs Period Temp Pulse Resp BP Sys/Sexton Pulse Ox Last 24 Hr 98.0 F-99.4 F 84-94 18-21 128-149/70-87 91-97 PHYSICAL EXAM GENERAL: Awake, alert, and fully oriented. LUNGS: Scattered rhonchi, bibasilar crackles; weak cough; bedside peak flow 130 HEART: Regular rate and rhythm, S1 and S2 ABDOMEN: Soft, nontender, not distended, normoactive bowel sounds, no guarding, no rebound tenderness UPPER EXTREMITIES: 2+ pulses, warm, well-perfused. No cyanosis. No clubbing. No peripheral edema. LOWER EXTREMITIES: 2+ pulses, warm, well-perfused. No calf tenderness. Trace bilateral pedal edema. NEUROLOGICAL: Dysarthria, weak cough, SKIN: Warm, dry, normal turgor Laboratory Results - last 24 hr 10/23/18 10/23/18 10/23/18 05:00 05:00 12:15 WBC RBC Hgb Hct MCV MCH MCHC RDW Plt Count MPV Absolute Neuts (auto) Neutrophils % Lymphocytes % Monocytes % Eosinophils % Basophils % Sodium Potassium Chloride Carbon Dioxide Anion Gap BUN Creatinine Creat Clearance w eGFR Random Glucose Calcium Phosphorus Magnesium 2.2 Total Bilirubin AST ALT Alkaline Phosphatase Total Protein Albumin Ur Random Sodium 78 Urine Creatinine 92.4 10/24/18 10/24/18 06:47 06:47 WBC 3.7 L RBC 4.33 Hgb 12.1 Hct 36.8 MCV 85.1 MCH 27.9 MCHC 32.8 RDW 13.5 Plt Count 279 MPV 7.1 L Absolute Neuts (auto) 2.7 Neutrophils % 70.3 Lymphocytes % 17.4 Monocytes % 11.4 H Eosinophils % 0.6 Basophils % 0.3 Sodium 136 Potassium 4.1 Chloride 103 Carbon Dioxide 23 Anion Gap 10 BUN 11 Creatinine 0.5 L Creat Clearance w eGFR 121.98 Random Glucose 115 H Calcium 8.2 L Phosphorus 3.5 Magnesium 1.9 Total Bilirubin 0.5 AST 20 ALT 26 Alkaline Phosphatase 109 Total Protein 5.9 L Albumin 3.4 Ur Random Sodium Urine Creatinine HOSPITAL COURSE: Date of Admission:10/23/18 Date of Discharge: 10/24/18 Pre hospital course 68 year-old female with a PMH significant for a progressive neuromuscular disorder diagnosed two years ago and GERD. Has been treated with carbidopa/ levodopa since 12/2017 with improvement in symptoms for a number of months; marked decline since July 2018. She has been seen by several neurologists without consensus on a diagnosis. Patient was brought to the ED by her for worsening cough and difficulty swallowing. The cough is persistent and frequently productive of clear sputum. The cough is worse when she lays down and she experiences a choking sensation when she lays flat. Over the past two months patient had two workups for UTIs and has been on two courses of antibiotics. Last course of macrobid finished about a week ago. Patient was seen by a urologist and had an ultrasound which showed a full bladder even though patient had no urge to void. She was catheterized on that occasion, but no further workup was done for urinary retention. Over the past several days patient reports several episodes of sweats and dysuria. In addition, over the past three weeks, reports several episodes of delusions when the patient thinks her mother and father are talking in their apartment. She also has said her children were in the apartment at a time when they were not. ER course (1) WBC 3.5k (2) SpO2 91% on room air (3) CT chest: (1) bronchitis; (2) thickening of the esophagus, distended with food-like material up to the upper esophagus just inferior to the thoracic inlet. Subsequent hospital course 68 year-old female with a PMH significant for a progressive neuromuscular disorder x 2 years and GERD. Recently treated for recurrent UTIs. Placed on observation for suspected bronchitis and UTI. Found on admission to have distended esophagus from food-like material. Neuromuscular disorder Hypoxia, Urinary retention, esohageal dysmotility/impaction likely secondary to underlying neuromuscular disease --sats 90% on room air when upright and awake; desatted overnight while sleeping, 92% on 4L --has stress incontinence but successive bladder scans show >450cc's --started Neupro 4mg TD patch q24h, and mirtazapine ODT 22.5mg qhs Distended esophagus --CT chest: thickening of the esophagus, distended with food-like material up to the upper esophagus just inferior to the thoracic inlet --seen and evaluated by GI Dr. Redd; OG tube dropped, <10cc's clear sputum output --strict NPO --HOB 60-->90 degrees; suction at bedside --patient hesitant about general anesthesia --concern for aspiration, empiric ceftriaxone and clindamycin Bronchitis --CT chest: bronchitis --WBC 3.7k, no fever --duonebs q4h --empiric antibiotics Dysuria Frequency --UA clear, UC negative; recent abx use, last round finished one week ago --continues to complain of dysuria --empiric antibiotics as above will cover any possible UTI GERD --Protonix IVP BID Minutes to complete discharge: 35 Discharge Summary Reason For Visit: PNEUMONIA Current Active Problems Achalasia (Acute) Esophageal obstruction due to food impaction (Acute) Parkinson disease (Acute) Pneumonia (Acute) Urinary tract infection (Acute) Condition: Stable - Instructions Disposition: TRANSFER ACUTE CARE/OTHER HOSP - Home Medications Comprehensive Discharge Medication List: Ambulatory Orders Carbidopa/Levodopa 25/250 [Sinemet 25/250 -] 1 each PO QID 10/23/18 Clonazepam 0.25 mg PO PRN PRN 10/23/18 Levothyroxine Sodium [Synthroid] 88 mcg PO DAILY 10/23/18 Mirtazapine 22.5 mg PO HS 10/23/18 Mirtazepine Heather Tabs [Remeron Soltab -] 15 mg PO DAILY #30 tab.rapdis 10/23/18 Omeprazole 40 mg PO ASDIR 10/23/18 Rotigotine [Neupro] 4 mg TD DAILY #7 patch.td24 10/23/18 Teriparatide [Forteo] 0 ml SQ DAILY 10/23/18 This patient is new to me today: No Emergency Visit: Yes ED Registration Date: 10/23/18 Care time: The patient presented to the Emergency Department on the above date and was hospitalized for further evaluation of their emergent condition. Critical Care patient: Yes Total Critical Care Time (in minutes): 90 Critical Care Statement: The care of this patient involved high complexity decision making to prevent further life threatening deterioration of the patient 's condition and/or to evaluate & treat vital organ system(s) failure or risk of failure. - Discharge Referral Referred to [facility] Med [facility].: No
--- NOTE | 2018-10-24 15:13 | PN ---
Progress Note (short form) - Note Progress Note: Patient kept NPO with plans for EGD today. No N/V or cough but apparently has moderate desaturation of O2 with sleeping and felt to be at increased risk for respiratory compromise with sedation (for EGD). Decision made to have patient intubated for EGD but patient reluctant due to concerns (and possible need for prolonged respiratory support). In view of above, EGD cancelled and patient being further evaluated. Has been able to tolerate ice chips and her saliva; doubt esophageal obstruction but could have some retained material in esophagus (due to previously established dysmotility). Could consider for barium swallow to evaluate further or begin cautious trial of clear liquid diet with monitoring. Discussed at length with patient and family; patient may be transferred to [facility] for further care. Continue IV PPI bid or QD for possible GERD/esophagitis.
[2018-10-24 16:29] VITALS: BP 145/79; PULSE 101; TEMP 98.5
[2018-10-24] MEDS ORDERED: ACETAMINOPHEN 1000 MG/100 ML VIAL (NON FORMULARY) IVPB ONE (16:45)
--- NOTE | 2018-10-24 17:15 | CON.NEURO ---
Consult Consult Specialty:: NEUROLOGY-[facility] - History of Present Illness History of Present Illness: 68 year-old female with a PMH significant for a progressive neuromuscular disorder diagnosed two years ago and GERD. She has been seen by several neuroloigsts without consensus on a diagnosis. She has been treated empirically with carbidopa/levodopa. Patient was brought to the ED today by her for worsening cough and difficulty swallowing. The cough is persistent and frequently productive of clear sputum. The cough is worse when she lays down and she experiences a choking sensation when she lays flat. Over the past two months patient had two workups for UTIs and has been on two courses of antibiotics. Last course of macrobid finished about a week ago. Patient was seen by a urologist and had an ultrasound which showed a full bladder even though patient had no urge to void. She was catheterized on that occasion, but no further workup was done for urinary retention. Over the past several days patient reports several episodes of sweats and dysuria. In addition, over the past three weeks, reports several episodes of delusions when the patient thinks her mother and father are talking in their apartment. She also has said her children were in the apartment at a time when they were not. ER course was notable for: (1) WBC 3.5k (2) SpO2 91% on room air (3) CT chest: (1) bronchitis; (2) thickening of the esophagus, distended with food-like material up to the upper esophagus just inferior to the thoracic inlet. Recent Travel: [employer] PAST MEDICAL HISTORY: Neuromuscular disorder Pelvic fracture Wrist fracture Severe osteoporosis GERD History as per Mr.Robert Regalado-Early November 2016 she reported right pinky tremors x 1 year with her writing becoming smaller for same period, neurology consultation was recommended-seen by Dr. Sylvain Suazo, MRI brain revealed no abn, 2 weeks later she fell and had a non-displaced pelvic fx.She had home PT during which she was noted to have ataxia , by April 2017 she could not walk, MRI Cspine was unrevealing-she was referred to psychiatry-rx. with antianxiety / antidx. meds-she develpoed myoclonic jerking of UEs, discont. these meds resolved myoclonic jerking. By this time she had marked bradykinesia, ataxia, masked face, stooped posture-an MRI at this time revealed" 12/07/16-cerebellar volume loss unchanged from previous one with progressive volume loss of the brain stem including cerebellar peduncles and james with progressive loss of brachium pontis bilaterally with associated ex vacuo dilatation of the 4th vent , +hotcross bun sign within james". At this point possible dx. of MSA was entertained,she was seen by who dx. PD-placed on Sinemet 25/100 that was gradually increased to now at 25/250, [address] Pantoja, neurosurgery also thought she has"some fluid" around her brain. She was seen by Dr.Richard Zamora who saw her with Dr. 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 Response to Sinemet-bradykinesia, gait, facial hypomimia improved markedly to the point she was able to walk with assistance, this response lasted until 6 weeks ago(she has always had more bradykinesia on right side and rigidity has been more notable on right side). In last 6 weeks she has been more ataxic, anxious and she has had difficulty swallowing,minimal and a subjective sensation of "choking"more weakness and was recently dx. with bronchitis-admitted to [facility] yesterday. In 08/16 developed urinary freq.she had a UTI and diminished bladder emptying- UTI treated, since than has had voiding difficulty?? 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 Upon thios admission noted to have food stasis and esophageal dysmotility), per GI she is able to swallow and can eat soft foods, sip fluids. A upper endoscopy to disimpact was being contemplated with anesthesia but anesthesia reluctant to intubate and GI (my discussion) feels it is not imminently necessary at this time. O/E: Awake, alert, oriented X 3, Impaired concentreation. Speech/language, slow buccal/guttural dysarthria with nasal tone(sound lower motor neuron origin). CN- EOMI+ mild facial hypomimia, + present pharyngeal sensation+hypoactive gag Motor- increased tone(of the upper motor neuron type) in all 4 ext. legs more than arms, 5/5 strength throughout, of note- no cogwheel rigidity.+ mann reflex+Myerson's sign Sensory-intact touch/pin Coordination- markedly impaired HKS and F-N,+ end point dysmetria bilat Gait- stand with assistance only, +pull test, "glued to the ground", cannot take steps, almost no arm swing. Reflexes- 3+ in all 4 ext except right ankle jerk is 4+ + ankle clonus right ankle(sustained). A+P: Ms. 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 D/W Dr. David, his advice/guidance greatly appreciated. She is being transferred to [facility] Plan: Goal at this time is to ensure GI motility zoroastrianism and more vigorous rx. with Levodopa( also strongly recommends these measures). 1- Will place on Sinemet 25/250, 1 tab crushed in apple sauce Q 4 hours 2- Cont Nupro patch 4mg q 24 hrs 3-Nutrition/speech swallow consultation 4-GI consultation 5-Urology consultation re retention. 6-Will institute other measures if need be. 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: Yes: Parkinson's ...: No Endocrine: Yes: Hypothyroidism - Alcohol/Substance Use Hx Alcohol Use: No History of Substance Use: reports: Heroin - Smoking History Smoking history: Never smoked - Social History Usual Living Arrangement: With Spouse History of Recent Travel: Yes ([place]) Home Medications - Allergies Allergies/Adverse Reactions: Allergies Allergy/AdvReac Type Severity Reaction Status Date / Time prednisone Allergy Verified 10/23/18 11:53 - Home Medications Home Medications: Ambulatory Orders Carbidopa/Levodopa 25/250 [Sinemet 25/250 -] 1 each PO QID 10/23/18 Levothyroxine Sodium [Synthroid] 88 mcg PO DAILY 10/23/18 Mirtazepine Heather Tabs [Remeron Soltab -] 15 mg PO DAILY #30 tab.rapdis 10/23/18 Rotigotine [Neupro] 4 mg TD DAILY #7 patch.td24 10/23/18 Teriparatide [Forteo] 0 ml SQ DAILY 10/23/18 Albuterol 2.5/Ipratropium 0.5 [Duoneb -] 1 amp NEB RQID amp 10/24/18 Heparin - 5,000 unit SQ BID vial 10/24/18 LORazepam [Ativan Injection -] 0.25 mg IVPUSH Q8H PRN #1 vial MDD 0.75 10/24/18 Pantoprazole Sodium [Protonix IV] 40 mg IVPUSH BID vial 10/24/18 Patient's Own Medication [Patient's Own Med (Nf) -] 1 each TP DAILY@2200 med Physical Exam-Neuro Vital Signs: Vital Signs Temperature 98.6 F 10/24/18 14:21 Pulse Rate 94 H 10/24/18 14:21 Respiratory Rate 18 10/24/18 16:00 Blood Pressure 143/86 10/24/18 14:21 O2 Sat by Pulse Oximetry (%) 94 L 10/24/18 16:00 Labs: CBC, BMP 10/24/18 06:47 10/24/18 06:47
[2018-10-24] MEDS ORDERED: NEUPRO 4 MG TP SCH (22:00)
== END 2018-10-24 17:25 | disposition short-term general hospital (02) ==
LOC: FER 11:42 → UNDOADMOB 13:51 → INTOOBSV 13:51 → FM/S 13:51
PROVIDERS: ATTEND Nurse Practitioner Acute Care
PROC: 3E03329 Introduction of Other Anti-infective into Peripheral Vein, Percutaneous Approach (ICD-10-PCS; principal; 2018-10-23)
PROC: 3E0333Z Introduction of Anti-inflammatory into Peripheral Vein, Percutaneous Approach (ICD-10-PCS; 2018-10-23)
PROC: 3E033NZ Introduction of Analgesics, Hypnotics, Sedatives into Peripheral Vein, Percutaneous Approach (ICD-10-PCS; 2018-10-23)
PROC: 3E033GC Introduction of Other Therapeutic Substance into Peripheral Vein, Percutaneous Approach (ICD-10-PCS; 2018-10-23)
PROC: 3E0F7GC Introduction of Other Therapeutic Substance into Respiratory Tract, Via Natural or Artificial Opening (ICD-10-PCS; 2018-10-23)
DX: K22.0 Achalasia of cardia (principal); K22.2 Esophageal obstruction; R09.02 Hypoxemia; J40 Bronchitis, not specified as acute or chronic; R33.9 Retention of urine, unspecified; G70.9 Myoneural disorder, unspecified; N39.0 Urinary tract infection, site not specified; R30.0 Dysuria; R35.0 Frequency of micturition; G20 Parkinson's disease; E03.9 Hypothyroidism, unspecified; F41.9 Anxiety disorder, unspecified; M81.0 Age-related osteoporosis without current pathological fracture; K21.9 Gastro-esophageal reflux disease without esophagitis
CPT/HCPCS: 36415; 71045-TC-FY; 71250-TC; 80053; 81003; 81015; 82550; 82570; 83735; 84100; 84300; 84443; 84484; 85025; 87040; 87086; 93005; 93306-TC; 94640; 96365; 96375; 99285-25; G0378; J0131; J1644

== ENCOUNTER 2020-08-06 14:09 | Emergency (ER) | payer OTHER, MEDICARE ==
[2020-08-06 14:16] VITALS: BP 148/87; PULSE 106; TEMP 97.9; BMI 26.4
== END 2020-08-06 15:49 | disposition home or self-care (01) ==
LOC: FER 14:09
DX: R33.9 Retention of urine, unspecified (principal)
CPT/HCPCS: 81003; 87086; 99283-25

== ENCOUNTER 2021-12-04 13:45 | Inpatient (IN) | payer OTHER, MEDICARE ==
[2021-12-04] MEDS ORDERED: ALBUTEROL SO4 2.5/IPRATROPIUM 0.5 INH SOL 3 ML VIAL.NEB. NEB ONE ×2 (14:00→14:11)
[2021-12-04] MEDS ORDERED: REMDESIVIR 200 MG in SODIUM CHLORIDE 250 ML IVPB ONE (14:06)
[2021-12-04] MEDS ORDERED: ACETAMINOPHEN 1000 MG/100 ML BAG IVPB ONE (14:06)
[2021-12-04] MEDS ORDERED: DEXAMETHASONE SOD PHOSPHATE 10 MG/1 ML VIAL IVPUSH ONE (14:06)
[2021-12-04] MEDS ORDERED: DEXAMETHASONE SOD PHOSPHATE 10 MG/1 ML VIAL ONE (14:17)
[2021-12-04] MEDS ORDERED: ACETAMINOPHEN INJECTION 100 ML IVPB ONE (14:17)
[2021-12-04 15:18] LABS: BASO % 0.6 % (0-2.0); EOS % 0.1 % (0-4.5); HEMATOCRIT 44.6 % (32.4-45.2); HEMOGLOBIN 14.4 GM/dL (10.7-15.3); LYMPH % 18.6 % (8-40); MCH 28.4 pg (25.7-33.7); MCHC 32.2 g/dl (32.0-36.0); MEAN CELL VOLUME 88.3 fl (80-96); MEAN PLT VOLUME 7.7 fl (7.5-11.1); MONO % 13.8 % (3.8-10.2); NEUT % 66.9 % (42.8-82.8); PLATELET COUNT 258 10^3/uL (134-434); RBC 5.05 M/mm3 (3.60-5.2); RDW 14.5 % (11.6-15.6); WHITE BLOOD COUNT 5.9 K/mm3 (4.0-10.0)
[2021-12-04] MEDS ORDERED: ALBUTEROL SO4 0.083% IH SOL 2.5 MG/3 ML VIAL.NEB. NEB PRN (15:20)
[2021-12-04 15:28] LABS: VENOUS O2 SATURATION 34.9 % (70-80); VENOUS PH 7.309 (7.310-7.410)
[2021-12-04 15:35] LABS: ACTIVATED PTT 33.2 SECONDS (25.2-36.5); INR 1.13 (0.83-1.09)
[2021-12-04 15:38] LABS: CHLORIDE 101 mmol/L (98-107); SODIUM 136 mmol/L (136-145)
[2021-12-04 15:40] LABS: CALCIUM 8.6 mg/dL (8.5-10.1)
[2021-12-04 15:41] LABS: ALBUMIN 3.7 g/dl (3.4-5.0); ANION GAP 5 MMOL/L (8-16); BLOOD UREA NITROGEN 27.2 mg/dL (7-18); CO2 29 mmol/L (21-32); GLUCOSE,RANDOM 94 mg/dL (74-106)
[2021-12-04 15:44] LABS: CREATININE 0.8 mg/dL (0.55-1.3); SGOT/AST 19 U/L (15-37); SGPT/ALT 10 U/L (13-61)
[2021-12-04 15:45] LABS: TOT PROT 6.9 g/dl (6.4-8.2)
[2021-12-04 15:46] LABS: ALK PHOS 101 U/L (45-117); BILIRUBIN,TOTAL 0.3 mg/dL (0.2-1)
[2021-12-04] MEDS: DEXTROSE 5%-NORMAL SALINE 1,000 ML IV SCH (16:11)
[2021-12-04] MEDS: ALBUTEROL SO4 2.5/IPRATROPIUM 0.5 INH SOL 3 ML VIAL.NEB. NEB SCH ×2 (16:12→19:51)
[2021-12-04] MEDS ORDERED: ACETAMINOPHEN 1000 MG/100 ML BAG IVPB PRN (16:16)
[2021-12-04] MEDS ORDERED: DEXTROSE 5%-WATER - 50 ML IVPB ONE (16:24)
[2021-12-04] MEDS ORDERED: cefTRIAXone SODIUM 1 GM VIAL ONE (16:24)
[2021-12-04] MEDS: CEFTRIAXONE 1 GM in DEXTROSE 5%-WATER - 50 ML IVPB SCH (16:29)
[2021-12-04] MEDS: AZITHROMYCIN IVPB 500 MG/250 ML BAG IVPB SCH (17:10)
[2021-12-04] MEDS: CARBIDOPA/LEVODOPA 25/250 TABLET (FP) PO SCH ×2 (18:08→22:27)
[2021-12-04 19:45] LABS: EPI CELLS 20 /uL (0-25.1); HYALINE CASTS 4 /uL (0-3.1); URINE APPEARANCE CLEAR; URINE BACTERIA 3 /uL (0-1359); URINE BILIRUBIN NEGATIVE (NEGATIVE); URINE COLOR YELLOW; URINE GLUCOSE (UA) NEGATIVE (NEGATIVE); URINE KETONE TRACE (NEGATIVE); URINE LEUK ESTERASE NEGATIVE (NEGATIVE); URINE NITRITE NEGATIVE (NEGATIVE); URINE PROTEIN 1+ (NEGATIVE); URINE RBC 13 /uL (0-23.9); URINE UROBILINOGEN 0.2 mg/dL (0.2-1.0); URINE WBC 43 /uL (0-25.8)
[2021-12-04] MEDS: clonazePAM 0.25 MG ODT TABLETS SL SCH (22:00)
[2021-12-04] MEDS: MIRTAZAPINE 15 MG TABLET (FP) PO SCH (22:26)
[2021-12-04] MEDS: busPIRone HCL 10 MG TABLET (FP) PO SCH (22:27)
[2021-12-04] MEDS: AMANTADINE HCL 100 MG TABLET PO SCH (22:27)
[2021-12-04] MEDS: ENOXAPARIN NA (PORCINE) 40 MG/0.4 ML DISP.SYRIN SQ SCH (22:28)
[2021-12-05 06:28] LABS: BASO % 0.2 % (0-2.0); HEMATOCRIT 40.8 % (32.4-45.2); HEMOGLOBIN 13.1 GM/dL (10.7-15.3); LYMPH % 11.8 % (8-40); MCH 28.5 pg (25.7-33.7); MCHC 32.2 g/dl (32.0-36.0); MEAN CELL VOLUME 88.5 fl (80-96); MEAN PLT VOLUME 7.6 fl (7.5-11.1); MONO % 8.6 % (3.8-10.2); NEUT % 79.4 % (42.8-82.8); PLATELET COUNT 241 10^3/uL (134-434); RBC 4.61 M/mm3 (3.60-5.2); RDW 14.1 % (11.6-15.6); WHITE BLOOD COUNT 4.9 K/mm3 (4.0-10.0)
[2021-12-05] MEDS: busPIRone HCL 10 MG TABLET (FP) PO SCH ×3 (06:52→21:16)
[2021-12-05] MEDS: LEVOTHYROXINE NA 88 MCG TABLET (FP) PO SCH (06:52)
[2021-12-05 06:53] LABS: ALBUMIN 3.1 g/dl (3.4-5.0); BLOOD UREA NITROGEN 20.9 mg/dL (7-18); CALCIUM 8.3 mg/dL (8.5-10.1); MAGNESIUM 2.4 mg/dL (1.8-2.4)
[2021-12-05 06:56] LABS: CREATININE 0.5 mg/dL (0.55-1.3); PHOSPHOROUS 4.1 mg/dL (2.5-4.9)
[2021-12-05 06:58] LABS: BILIRUBIN,TOTAL 0.6 mg/dL (0.2-1); TOT PROT 6.1 g/dl (6.4-8.2)
[2021-12-05] MEDS: ALBUTEROL SO4 2.5/IPRATROPIUM 0.5 INH SOL 3 ML VIAL.NEB. NEB SCH ×4 (08:05→20:45)
[2021-12-05] MEDS ORDERED: cefTRIAXone SODIUM 1 GM VIAL ONE (09:33)
[2021-12-05] MEDS ORDERED: DEXTROSE 5%-WATER - 50 ML IVPB ONE (09:34)
[2021-12-05] MEDS: CARBIDOPA/LEVODOPA 25/250 TABLET (FP) PO SCH ×4 (10:12→21:11)
[2021-12-05] MEDS: AMANTADINE HCL 100 MG TABLET PO SCH ×2 (10:12→21:15)
[2021-12-05] MEDS: PANTOPRAZOLE 40 MG TABLET PO SCH (10:14)
[2021-12-05] MEDS: ENOXAPARIN NA (PORCINE) 40 MG/0.4 ML DISP.SYRIN SQ SCH ×2 (10:14→21:14)
[2021-12-05] MEDS: AZITHROMYCIN IVPB 500 MG/250 ML BAG IVPB SCH (10:15)
[2021-12-05] MEDS: CEFTRIAXONE 1 GM in DEXTROSE 5%-WATER - 50 ML IVPB SCH (10:15)
[2021-12-05] MEDS: DEXAMETHASONE SOD PHOSPHATE 10 MG/1 ML VIAL IVPUSH SCH (10:16)
[2021-12-05] MEDS: clonazePAM 0.25 MG ODT TABLETS SL SCH ×3 (14:03→21:15)
[2021-12-05] MEDS: REMDESIVIR 100 MG in SODIUM CHLORIDE 250 ML IVPB SCH (15:44)
[2021-12-05 15:51] VITALS: BMI 27.0
[2021-12-05] MEDS: DEXTROSE 5%-NORMAL SALINE 1,000 ML IV SCH (20:35)
[2021-12-05] MEDS: MIRTAZAPINE 15 MG TABLET (FP) PO SCH (21:15)
[2021-12-06] MEDS: busPIRone HCL 10 MG TABLET (FP) PO SCH ×3 (05:34→21:19)
[2021-12-06] MEDS: clonazePAM 0.25 MG ODT TABLETS SL SCH ×3 (05:34→21:20)
[2021-12-06] MEDS: LEVOTHYROXINE NA 88 MCG TABLET (FP) PO SCH (06:09)
[2021-12-06] MEDS: ALBUTEROL SO4 2.5/IPRATROPIUM 0.5 INH SOL 3 ML VIAL.NEB. NEB SCH ×4 (08:23→20:40)
[2021-12-06] MEDS ORDERED: DEXTROSE 5%-WATER - 50 ML IVPB ONE (09:54)
[2021-12-06] MEDS ORDERED: cefTRIAXone SODIUM 1 GM VIAL ONE (09:54)
[2021-12-06] MEDS: CEFTRIAXONE 1 GM in DEXTROSE 5%-WATER - 50 ML IVPB SCH (10:46)
[2021-12-06] MEDS: ENOXAPARIN NA (PORCINE) 40 MG/0.4 ML DISP.SYRIN SQ SCH ×2 (10:46→21:20)
[2021-12-06] MEDS: DEXAMETHASONE SOD PHOSPHATE 10 MG/1 ML VIAL IVPUSH SCH (10:48)
[2021-12-06] MEDS: CARBIDOPA/LEVODOPA 25/250 TABLET (FP) PO SCH ×4 (10:49→21:19)
[2021-12-06] MEDS: PANTOPRAZOLE 40 MG TABLET PO SCH (10:49)
[2021-12-06] MEDS: AMANTADINE HCL 100 MG TABLET PO SCH ×2 (10:49→21:20)
[2021-12-06] MEDS: AZITHROMYCIN IVPB 500 MG/250 ML BAG IVPB SCH (10:50)
[2021-12-06 11:20] LABS: HEMOGLOBIN 13.2 GM/dL (10.7-15.3); MCH 28.7 pg (25.7-33.7); MEAN PLT VOLUME 7.2 fl (7.5-11.1); PLATELET COUNT 222 10^3/uL (134-434); RBC 4.59 M/mm3 (3.60-5.2); RDW 13.9 % (11.6-15.6); WHITE BLOOD COUNT 9.2 K/mm3 (4.0-10.0)
[2021-12-06 12:16] LABS: BLOOD UREA NITROGEN 17.5 mg/dL (7-18); CALCIUM 8.4 mg/dL (8.5-10.1)
[2021-12-06 12:19] LABS: CREATININE 0.6 mg/dL (0.55-1.3)
[2021-12-06 12:21] LABS: BILIRUBIN,TOTAL 0.3 mg/dL (0.2-1); TOT PROT 5.7 g/dl (6.4-8.2)
[2021-12-06] MEDS: REMDESIVIR 100 MG in SODIUM CHLORIDE 250 ML IVPB SCH (16:35)
[2021-12-06] MEDS: MIRTAZAPINE 15 MG TABLET (FP) PO SCH (21:19)
[2021-12-07] MEDS: busPIRone HCL 10 MG TABLET (FP) PO SCH ×3 (05:56→22:12)
[2021-12-07] MEDS: clonazePAM 0.25 MG ODT TABLETS SL SCH ×3 (05:56→22:13)
[2021-12-07] MEDS: LEVOTHYROXINE NA 88 MCG TABLET (FP) PO SCH (05:59)
[2021-12-07 06:25] LABS: HEMATOCRIT 40.8 % (32.4-45.2); HEMOGLOBIN 13.4 GM/dL (10.7-15.3); MCH 28.4 pg (25.7-33.7); MCHC 32.8 g/dl (32.0-36.0); MEAN CELL VOLUME 86.5 fl (80-96); MEAN PLT VOLUME 7.8 fl (7.5-11.1); PLATELET COUNT 244 10^3/uL (134-434); RBC 4.71 M/mm3 (3.60-5.2); RDW 13.9 % (11.6-15.6); WHITE BLOOD COUNT 5.9 K/mm3 (4.0-10.0)
[2021-12-07 06:45] LABS: CALCIUM 8.4 mg/dL (8.5-10.1)
[2021-12-07 06:46] LABS: BLOOD UREA NITROGEN 18.4 mg/dL (7-18)
[2021-12-07 06:49] LABS: CREATININE 0.5 mg/dL (0.55-1.3)
[2021-12-07 06:51] LABS: BILIRUBIN,TOTAL 0.3 mg/dL (0.2-1); TOT PROT 5.6 g/dl (6.4-8.2)
[2021-12-07] MEDS: ALBUTEROL SO4 2.5/IPRATROPIUM 0.5 INH SOL 3 ML VIAL.NEB. NEB SCH ×4 (08:13→20:10)
[2021-12-07] MEDS ORDERED: DEXTROSE 5%-WATER - 50 ML IVPB ONE (09:32)
[2021-12-07] MEDS ORDERED: cefTRIAXone SODIUM 1 GM VIAL ONE (09:32)
[2021-12-07] MEDS: AZITHROMYCIN IVPB 500 MG/250 ML BAG IVPB SCH (09:50)
[2021-12-07] MEDS: CEFTRIAXONE 1 GM in DEXTROSE 5%-WATER - 50 ML IVPB SCH (09:50)
[2021-12-07] MEDS: DEXAMETHASONE SOD PHOSPHATE 10 MG/1 ML VIAL IVPUSH SCH (09:52)
[2021-12-07] MEDS: ENOXAPARIN NA (PORCINE) 40 MG/0.4 ML DISP.SYRIN SQ SCH ×2 (09:52→22:12)
[2021-12-07] MEDS: AMANTADINE HCL 100 MG TABLET PO SCH ×2 (09:52→22:13)
[2021-12-07] MEDS: CARBIDOPA/LEVODOPA 25/250 TABLET (FP) PO SCH ×4 (09:53→22:12)
[2021-12-07] MEDS: PANTOPRAZOLE 40 MG TABLET PO SCH (09:54)
[2021-12-07] MEDS ORDERED: BISACODYL 10 MG SUPP.RECT PR ONE (14:30)
[2021-12-07] MEDS: REMDESIVIR 100 MG in SODIUM CHLORIDE 250 ML IVPB SCH (15:57)
[2021-12-07] MEDS: MIRTAZAPINE 15 MG TABLET (FP) PO SCH (22:12)
[2021-12-08] MEDS: busPIRone HCL 10 MG TABLET (FP) PO SCH ×3 (06:09→22:20)
[2021-12-08] MEDS: LEVOTHYROXINE NA 88 MCG TABLET (FP) PO SCH (06:09)
[2021-12-08] MEDS: clonazePAM 0.25 MG ODT TABLETS SL SCH ×3 (06:09→22:19)
[2021-12-08 06:29] LABS: HEMATOCRIT 43.9 % (32.4-45.2); HEMOGLOBIN 14.3 GM/dL (10.7-15.3); MCH 28.2 pg (25.7-33.7); MCHC 32.5 g/dl (32.0-36.0); MEAN CELL VOLUME 86.5 fl (80-96); MEAN PLT VOLUME 7.9 fl (7.5-11.1); PLATELET COUNT 271 10^3/uL (134-434); RBC 5.07 M/mm3 (3.60-5.2); RDW 13.5 % (11.6-15.6); WHITE BLOOD COUNT 5.4 K/mm3 (4.0-10.0)
[2021-12-08 06:53] LABS: ALBUMIN 3.3 g/dl (3.4-5.0); BLOOD UREA NITROGEN 20.8 mg/dL (7-18)
[2021-12-08 06:56] LABS: CREATININE 0.6 mg/dL (0.55-1.3)
[2021-12-08 06:58] LABS: BILIRUBIN,TOTAL 0.4 mg/dL (0.2-1)
[2021-12-08] MEDS: ALBUTEROL SO4 2.5/IPRATROPIUM 0.5 INH SOL 3 ML VIAL.NEB. NEB SCH ×4 (07:25→20:16)
[2021-12-08] MEDS ORDERED: cefTRIAXone SODIUM 1 GM VIAL ONE (09:20)
[2021-12-08] MEDS ORDERED: DEXTROSE 5%-WATER - 50 ML IVPB ONE (09:20)
[2021-12-08] MEDS: ENOXAPARIN NA (PORCINE) 40 MG/0.4 ML DISP.SYRIN SQ SCH ×2 (09:30→22:18)
[2021-12-08] MEDS: PANTOPRAZOLE 40 MG TABLET PO SCH (09:30)
[2021-12-08] MEDS: CARBIDOPA/LEVODOPA 25/250 TABLET (FP) PO SCH ×4 (09:30→22:19)
[2021-12-08] MEDS: AZITHROMYCIN IVPB 500 MG/250 ML BAG IVPB SCH (09:31)
[2021-12-08] MEDS: DEXAMETHASONE SOD PHOSPHATE 10 MG/1 ML VIAL IVPUSH SCH (09:31)
[2021-12-08] MEDS: AMANTADINE HCL 100 MG TABLET PO SCH ×2 (09:31→22:18)
[2021-12-08] MEDS: CEFTRIAXONE 1 GM in DEXTROSE 5%-WATER - 50 ML IVPB SCH (09:31)
[2021-12-08] MEDS ORDERED: amLODIPine BESYLATE 2.5 MG TABLET (FP) PO SCH (10:00)
[2021-12-08] MEDS: REMDESIVIR 100 MG in SODIUM CHLORIDE 250 ML IVPB SCH (16:42)
[2021-12-08] MEDS: MIRTAZAPINE 15 MG TABLET (FP) PO SCH (22:19)
[2021-12-09] MEDS: busPIRone HCL 10 MG TABLET (FP) PO SCH ×3 (06:16→22:17)
[2021-12-09] MEDS: clonazePAM 0.25 MG ODT TABLETS SL SCH ×3 (06:16→22:18)
[2021-12-09] MEDS: LEVOTHYROXINE NA 88 MCG TABLET (FP) PO SCH (06:16)
[2021-12-09 06:58] LABS: HEMATOCRIT 44.9 % (32.4-45.2); HEMOGLOBIN 14.8 GM/dL (10.7-15.3); MCH 28.5 pg (25.7-33.7); MCHC 32.9 g/dl (32.0-36.0); MEAN CELL VOLUME 86.5 fl (80-96); MEAN PLT VOLUME 7.7 fl (7.5-11.1); PLATELET COUNT 276 10^3/uL (134-434); RBC 5.19 M/mm3 (3.60-5.2); RDW 13.7 % (11.6-15.6); WHITE BLOOD COUNT 5.2 K/mm3 (4.0-10.0)
[2021-12-09] MEDS: ALBUTEROL SO4 2.5/IPRATROPIUM 0.5 INH SOL 3 ML VIAL.NEB. NEB SCH ×4 (07:15→20:06)
[2021-12-09 07:23] LABS: CALCIUM 8.9 mg/dL (8.5-10.1)
[2021-12-09 07:24] LABS: ALBUMIN 3.4 g/dl (3.4-5.0); BLOOD UREA NITROGEN 24.8 mg/dL (7-18); MAGNESIUM 2.5 mg/dL (1.8-2.4)
[2021-12-09 07:27] LABS: CREATININE 0.6 mg/dL (0.55-1.3)
[2021-12-09 07:31] LABS: BILIRUBIN,TOTAL 0.4 mg/dL (0.2-1)
[2021-12-09] MEDS ORDERED: amLODIPine BESYLATE 5 MG TABLET (FP) PO SCH ×2 (08:42→08:45)
[2021-12-09] MEDS ORDERED: cefTRIAXone SODIUM 1 GM VIAL ONE (09:20)
[2021-12-09] MEDS ORDERED: DEXTROSE 5%-WATER - 50 ML IVPB ONE (09:20)
[2021-12-09] MEDS: DEXAMETHASONE SOD PHOSPHATE 10 MG/1 ML VIAL IVPUSH SCH (09:21)
[2021-12-09] MEDS: ENOXAPARIN NA (PORCINE) 40 MG/0.4 ML DISP.SYRIN SQ SCH ×2 (09:21→22:17)
[2021-12-09] MEDS: CARBIDOPA/LEVODOPA 25/250 TABLET (FP) PO SCH ×4 (09:22→22:17)
[2021-12-09] MEDS: AMANTADINE HCL 100 MG TABLET PO SCH ×2 (09:22→22:17)
[2021-12-09] MEDS: CEFTRIAXONE 1 GM in DEXTROSE 5%-WATER - 50 ML IVPB SCH (09:22)
[2021-12-09] MEDS: PANTOPRAZOLE 40 MG TABLET PO SCH (09:22)
[2021-12-09] MEDS: MIRTAZAPINE 15 MG TABLET (FP) PO SCH (22:18)
[2021-12-10] MEDS: LEVOTHYROXINE NA 88 MCG TABLET (FP) PO SCH (06:24)
[2021-12-10] MEDS: busPIRone HCL 10 MG TABLET (FP) PO SCH ×3 (06:24→21:57)
[2021-12-10] MEDS: clonazePAM 0.25 MG ODT TABLETS SL SCH ×3 (06:24→21:55)
[2021-12-10 06:58] LABS: ALBUMIN 3.3 g/dl (3.4-5.0); BLOOD UREA NITROGEN 32.2 mg/dL (7-18); MAGNESIUM 2.5 mg/dL (1.8-2.4)
[2021-12-10 07:02] LABS: CREATININE 0.7 mg/dL (0.55-1.3)
[2021-12-10 07:03] LABS: BILIRUBIN,TOTAL 0.4 mg/dL (0.2-1); TOT PROT 5.9 g/dl (6.4-8.2)
[2021-12-10 07:04] LABS: HEMATOCRIT 43.3 % (32.4-45.2); HEMOGLOBIN 14.1 GM/dL (10.7-15.3); MCH 28.2 pg (25.7-33.7); MCHC 32.7 g/dl (32.0-36.0); MEAN CELL VOLUME 86.5 fl (80-96); MEAN PLT VOLUME 7.9 fl (7.5-11.1); PLATELET COUNT 314 10^3/uL (134-434); RDW 13.7 % (11.6-15.6); WHITE BLOOD COUNT 6.2 K/mm3 (4.0-10.0)
[2021-12-10] MEDS: ALBUTEROL SO4 2.5/IPRATROPIUM 0.5 INH SOL 3 ML VIAL.NEB. NEB SCH ×4 (07:55→20:10)
[2021-12-10] MEDS ORDERED: cefTRIAXone SODIUM 1 GM VIAL ONE (09:38)
[2021-12-10] MEDS ORDERED: DEXTROSE 5%-WATER - 50 ML IVPB ONE (09:38)
[2021-12-10] MEDS: DEXAMETHASONE SOD PHOSPHATE 10 MG/1 ML VIAL IVPUSH SCH (09:58)
[2021-12-10] MEDS: CEFTRIAXONE 1 GM in DEXTROSE 5%-WATER - 50 ML IVPB SCH (09:59)
[2021-12-10] MEDS: ENOXAPARIN NA (PORCINE) 40 MG/0.4 ML DISP.SYRIN SQ SCH ×2 (09:59→21:47)
[2021-12-10] MEDS: PANTOPRAZOLE 40 MG TABLET PO SCH (10:00)
[2021-12-10] MEDS: CARBIDOPA/LEVODOPA 25/250 TABLET (FP) PO SCH ×4 (10:00→21:57)
[2021-12-10] MEDS: amLODIPine BESYLATE 5 MG TABLET (FP) PO SCH (10:00)
[2021-12-10] MEDS: AMANTADINE HCL 100 MG TABLET PO SCH ×2 (10:02→21:57)
[2021-12-10] MEDS: MIRTAZAPINE 15 MG TABLET (FP) PO SCH (21:56)
[2021-12-11] MEDS: clonazePAM 0.25 MG ODT TABLETS SL SCH ×2 (06:20→13:50)
[2021-12-11] MEDS: busPIRone HCL 10 MG TABLET (FP) PO SCH ×2 (06:20→13:45)
[2021-12-11] MEDS: LEVOTHYROXINE NA 88 MCG TABLET (FP) PO SCH (06:20)
[2021-12-11 07:08] LABS: HEMATOCRIT 45.5 % (32.4-45.2); HEMOGLOBIN 14.9 GM/dL (10.7-15.3); MCH 28.4 pg (25.7-33.7); MCHC 32.7 g/dl (32.0-36.0); MEAN CELL VOLUME 86.9 fl (80-96); PLATELET COUNT 333 10^3/uL (134-434); RBC 5.23 M/mm3 (3.60-5.2); RDW 13.6 % (11.6-15.6); WHITE BLOOD COUNT 9.1 K/mm3 (4.0-10.0)
[2021-12-11 07:23] LABS: ALBUMIN 3.5 g/dl (3.4-5.0); CALCIUM 9.4 mg/dL (8.5-10.1)
[2021-12-11 07:24] LABS: BLOOD UREA NITROGEN 30.9 mg/dL (7-18); MAGNESIUM 2.4 mg/dL (1.8-2.4)
[2021-12-11 07:26] LABS: CREATININE 0.7 mg/dL (0.55-1.3)
[2021-12-11 07:29] LABS: BILIRUBIN,TOTAL 0.8 mg/dL (0.2-1); TOT PROT 6.4 g/dl (6.4-8.2)
[2021-12-11] MEDS: ALBUTEROL SO4 2.5/IPRATROPIUM 0.5 INH SOL 3 ML VIAL.NEB. NEB SCH (07:40)
[2021-12-11] MEDS: DEXAMETHASONE SOD PHOSPHATE 10 MG/1 ML VIAL IVPUSH SCH (10:30)
[2021-12-11] MEDS: CEFTRIAXONE 1 GM in DEXTROSE 5%-WATER - 50 ML IVPB SCH (10:30)
[2021-12-11] MEDS: PANTOPRAZOLE 40 MG TABLET PO SCH (10:30)
[2021-12-11] MEDS ORDERED: cefTRIAXone SODIUM 1 GM VIAL ONE (10:33)
[2021-12-11] MEDS ORDERED: DEXTROSE 5%-WATER - 50 ML IVPB ONE (10:34)
[2021-12-11 10:38] VITALS: TEMP 97.7
[2021-12-11] MEDS: ENOXAPARIN NA (PORCINE) 40 MG/0.4 ML DISP.SYRIN SQ SCH (11:02)
[2021-12-11] MEDS: amLODIPine BESYLATE 5 MG TABLET (FP) PO SCH (11:03)
[2021-12-11] MEDS: CARBIDOPA/LEVODOPA 25/250 TABLET (FP) PO SCH ×2 (11:04→13:50)
[2021-12-11] MEDS: AMANTADINE HCL 100 MG TABLET PO SCH (11:05)
[2021-12-11 13:09] VITALS: BP 118/86; PULSE 95
== END 2021-12-11 14:34 | disposition home health service (06) | DRG 177 ==
LOC: JER 13:45 → JERBED 14:35 → JICU 15:25
PROVIDERS: ADMIT Internal Medicine; ATTEND Nurse Practitioner Acute Care
PROC: XW033E5 Introduction of Remdesivir Anti-infective into Peripheral Vein, Percutaneous Approach, New Technology Group 5 (ICD-10-PCS; principal; 2021-12-04)
DX: U07.1 COVID-19 (principal); J96.01 Acute respiratory failure with hypoxia; J12.82 Pneumonia due to coronavirus disease 2019; J98.11 Atelectasis; E03.9 Hypothyroidism, unspecified; G20 Parkinson's disease; G35 Multiple sclerosis; R13.12 Dysphagia, oropharyngeal phase; R53.83 Other fatigue
CPT/HCPCS: 0241U-QW; 36415; 71045-TC-FY; 80053; 81003; 82272; 82553; 82803; 83605; 83735; 84100; 85025; 85027; 85379; 85610; 85730; 86140; 86850; 86900; 86901; 87040; 87086; 87807; 93005; 93010; 94640; 94761; 97116-GP; 97162-GP; 99285-25; C9399; C9803-CS; J1100; U0003; U0005

== ENCOUNTER 2022-10-28 14:12 | Emergency (ER) | payer OTHER, MEDICARE ==
[2022-10-28] MEDS ORDERED: ACETAMINOPHEN 650 MG/20.3 ML ORAL SOLUTION (CUPS) PO ONE (14:19)
[2022-10-28 14:35] VITALS: BP 136/80; PULSE 94; RESP 17; TEMP 98.5
[2022-10-28] MEDS ORDERED: ACETAMINOPHEN 650 MG/20.3 ML ORAL SOLUTION (CUPS) ONE (14:46)
== END 2022-10-28 15:20 | disposition home or self-care (01) ==
LOC: FER 14:12
PROC: 2W3DX1Z Immobilization of Left Lower Arm using Splint (ICD-10-PCS; principal; 2022-10-28)
DX: S62.317A Displaced fracture of base of fifth metacarpal bone, left hand, initial encounter for closed fracture (principal); W08.XXXA Fall from other furniture, initial encounter
CPT/HCPCS: 73110-TC-LT-FY; 73130-TC-LT-FY; 99283-25